=== PATIENT | female | born 2000 | race Two or more races ===

== ENCOUNTER → 2025-02-06 | Outpatient (CLI) | payer MEDICAID, SELFPAY | END | disposition home or self-care (01) | PROVIDERS: PCP Family Medicine; Referring Provider Orthopaedic Surgery; Visit Provider Orthopaedic Surgery | DX: Z53.8 Procedure and treatment not carried out for other reasons (principal) ==

== ENCOUNTER → 2025-02-10 | Outpatient (CLI) | payer MEDICAID, SELFPAY ==
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
== END | disposition home or self-care (01) ==
PROVIDERS: PCP Family Medicine; Referring Provider Orthopaedic Surgery; Visit Provider Orthopaedic Surgery
DX: M25.851 Other specified joint disorders, right hip (principal); Z87.81 Personal history of (healed) traumatic fracture
CPT/HCPCS: 72170

== ENCOUNTER → 2025-02-12 | Outpatient (CLI) | payer MEDICAID, SELFPAY ==
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
== END | disposition home or self-care (01) ==
LOC: CDIM 16:58
PROVIDERS: PCP Family Medicine; Referring Provider Podiatrist; Visit Provider Podiatrist
DX: S92.354D Nondisplaced fracture of fifth metatarsal bone, right foot, subsequent encounter for fracture with routine healing (principal); V99.XXXD Unspecified transport accident, subsequent encounter
CPT/HCPCS: 73630

== ENCOUNTER 2025-02-14 23:01 | Emergency (ER) | payer MEDICAID, SELFPAY ==
[2025-02-14 23:01] VITALS: BMI 40.2
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
[2025-02-14 23:18] VITALS: BP 139/89; PULSE 98; RESP 18; TEMP 36.8; O2SAT 98
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
[2025-02-15] MEDS: MORPHINE SULF INJ 10 MG/ML VIAL IM (01:58)
[2025-02-15 02:08] VITALS: BP 125/68; PULSE 87; RESP 19; TEMP 36.6; O2SAT 99
== END 2025-02-15 02:11 | disposition home or self-care (01) ==
PROVIDERS: Emergency Provider Emergency Medicine; PCP Family Medicine
DX: S32.501A Unspecified fracture of right pubis, initial encounter for closed fracture (principal); S32.491A Other specified fracture of right acetabulum, initial encounter for closed fracture; S32.601A Unspecified fracture of right ischium, initial encounter for closed fracture; X58.XXXA Exposure to other specified factors, initial encounter
CPT/HCPCS: 72192; 96372; 99284; J2270

== ENCOUNTER 2025-02-19 22:15 | Emergency (ER) | payer MEDICAID, SELFPAY ==
[2025-02-19 22:16] VITALS: BMI 40.2
[2025-02-19 22:52] VITALS: BP 141/91; PULSE 87; RESP 18; TEMP 36.8; O2SAT 99
--- NOTE | 2025-02-20 | XR_ITS ---
Examination: Duplex scan of the lower extremity, unilateral left complete Date and time of exam: February 12, 2025 0221 hours INDICATIONS: Left leg swelling and pain beginning 2 weeks ago Technique: Duplex scan of the extremity veins using B-mode/grayscale imaging and Doppler spectral analysis and color flow Attention is directed to internal echogenicity, compression and augmentation involving these veins, color flow assessment, spectral analysis Findings: Major deep venous structures in the extremity demonstrate normal course and caliber. There is no evidence of deep vein thrombosis. Normal color flow and spectral analysis Impression: Negative for DVT..
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
--- NOTE | 2025-02-20 04:15 | PRELIM_ITS ---
Left lower extremity venous Doppler ultrasound with wave Doppler spectral analysis. February 20, 2025 at 0221 hours Clinical history: Rule out DVT. Technique: Duplex scan of the left lower extremity deep venous systems was performed utilizing 2D grayscale imaging, Doppler spectral analysis and color flow Doppler and with compression. Comparison: No prior study is available for comparison. Findings: Doshi scale, color flow and spectral Doppler evaluation of the left lower extremity deep veins was performed. The common femoral, superficial femoral and popliteal veins are patent and compressible. Normal respiratory variation is noted. There is no evidence of occlusive or nonocclusive thrombus. The great saphenous vein is patent and compressible at the level of the saphenofemoral junction. Impression: No sonographic evidence of deep venous thrombosis in the left lower extremity. Report Electronically Signed By: Rancho Saleem 02/20/2025 4:14:59 AM [EST]
== END 2025-02-20 05:03 | disposition home or self-care (01) ==
PROVIDERS: Emergency Provider Emergency Medicine; PCP Family Medicine
DX: M79.89 Other specified soft tissue disorders (principal)
CPT/HCPCS: 93971; 99284

== ENCOUNTER 2025-03-25 10:30 | Outpatient (RCR) | payer MEDICAID, SELFPAY ==
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
== END 2025-03-25 23:59 | disposition home or self-care (01) ==
LOC: CPTX 10:30
PROVIDERS: PCP Family Medicine; Referring Provider Family Medicine; Visit Provider Family Medicine
DX: R26.2 Difficulty in walking, not elsewhere classified (principal); R26.89 Other abnormalities of gait and mobility; S82.54 Nondisplaced fracture of medial malleolus of right tibia; S72.91XD Unspecified fracture of right femur, subsequent encounter for closed fracture with routine healing; V89.2XXD Person injured in unspecified motor-vehicle accident, traffic, subsequent encounter
CPT/HCPCS: 97110; 97162

== ENCOUNTER → 2025-04-06 | Outpatient (CLI) | payer MEDICAID, SELFPAY ==
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
== END | disposition home or self-care (01) ==
PROVIDERS: Referring Provider Orthopaedic Surgery; Visit Provider Orthopaedic Surgery
DX: S82.131 Displaced fracture of medial condyle of right tibia (principal); V99.XXXA Unspecified transport accident, initial encounter; Z87.81 Personal history of (healed) traumatic fracture
CPT/HCPCS: 72170; 73562

== ENCOUNTER → 2025-04-14 | Outpatient (CLI) | payer MEDICAID, SELFPAY ==
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
== END | disposition home or self-care (01) ==
PROVIDERS: PCP Family Medicine; Referring Provider Orthopaedic Surgery; Visit Provider Orthopaedic Surgery
DX: Z87.81 Personal history of (healed) traumatic fracture (principal)
CPT/HCPCS: 72170

== ENCOUNTER 2025-04-23 13:00 | Outpatient (RCR) | payer MEDICAID, SELFPAY ==
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
== END 2025-04-25 23:59 | disposition home or self-care (01) ==
LOC: CPTX 13:00
PROVIDERS: PCP Family Medicine; Referring Provider Family Medicine; Visit Provider Family Medicine
DX: R26.2 Difficulty in walking, not elsewhere classified (principal); R26.89 Other abnormalities of gait and mobility; S82.54 Nondisplaced fracture of medial malleolus of right tibia; S72.91XD Unspecified fracture of right femur, subsequent encounter for closed fracture with routine healing; V89.2XXD Person injured in unspecified motor-vehicle accident, traffic, subsequent encounter
CPT/HCPCS: 97110

== ENCOUNTER 2025-05-11 10:25 | Outpatient (RCR) | payer MEDICAID, SELFPAY ==
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
== END 2025-05-25 23:59 | disposition home or self-care (01) ==
LOC: CPTX 10:25
PROVIDERS: PCP Family Medicine; Referring Provider Family Medicine; Visit Provider Family Medicine
DX: R26.2 Difficulty in walking, not elsewhere classified (principal); R26.89 Other abnormalities of gait and mobility; S82.54 Nondisplaced fracture of medial malleolus of right tibia; S72.91XD Unspecified fracture of right femur, subsequent encounter for closed fracture with routine healing; V89.2XXD Person injured in unspecified motor-vehicle accident, traffic, subsequent encounter
CPT/HCPCS: 97110

== ENCOUNTER 2025-07-22 11:30 | Outpatient (RCR) | payer MEDICAID, SELFPAY ==
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
== END 2025-07-26 23:59 | disposition home or self-care (01) ==
LOC: CPTX 11:30
PROVIDERS: PCP Family Medicine; Referring Provider Family Medicine; Visit Provider Family Medicine
DX: R26.2 Difficulty in walking, not elsewhere classified (principal); R26.89 Other abnormalities of gait and mobility; R53.1 Weakness; M25.551 Pain in right hip; S82.54 Nondisplaced fracture of medial malleolus of right tibia; S72.91XD Unspecified fracture of right femur, subsequent encounter for closed fracture with routine healing; T07.XXXD Unspecified multiple injuries, subsequent encounter; V89.2XXD Person injured in unspecified motor-vehicle accident, traffic, subsequent encounter
CPT/HCPCS: 97110

== ENCOUNTER 2025-08-06 11:25 | Outpatient (RCR) | payer MEDICAID, SELFPAY ==
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
== END 2025-08-25 23:59 | disposition home or self-care (01) ==
LOC: CPTX 11:25
PROVIDERS: PCP Family Medicine; Referring Provider Family Medicine; Visit Provider Family Medicine
DX: R26.2 Difficulty in walking, not elsewhere classified (principal); R26.89 Other abnormalities of gait and mobility; S82.54XD Nondisplaced fracture of medial malleolus of right tibia, subsequent encounter for closed fracture with routine healing; S72.91XD Unspecified fracture of right femur, subsequent encounter for closed fracture with routine healing; V89.2XXD Person injured in unspecified motor-vehicle accident, traffic, subsequent encounter
CPT/HCPCS: 97110

== ENCOUNTER 2025-08-29 19:57 | Emergency (ER) | payer MEDICAID, SELFPAY ==
[2025-08-29 19:59] VITALS: BMI 42.0
[2025-08-29 20:24] VITALS: BP 132/88; PULSE 75; RESP 18; TEMP 36.9; O2SAT 99
--- NOTE | 2025-08-29 20:35 | EDNOTE_ITS ---
ED Dizzyness RME/HPI General Chief Complaint: Dizziness Stated Complaint: DIZZINESS Time Seen by Provider: 08/29/25 20:03 Arrival date/time: 08/29/25 19:57 RME / HPI RME / HPI Narrative: 24-year-old female patient came in for evaluation regarding dizziness. Patient has been having dizziness on and off for the last few days, worse with sudden positional change. Denies any trauma denies any fall denies any fever denies any focal neurologic deficit. Patient is ambulatory. On my initial evaluation patient told me that her dizziness is completely gone. Related Data Previous Rx's ?Medication ?Instructions ?Recorded acetaminophen 500 mg tablet 1,000 mg (2 x 500 mg) PO Q 6H PRN 01/25/19 fever #30 tabs clindamycin HCl 300 mg capsule 300 mg PO QID #40 caps 01/25/19 oxycodone-acetaminophen 5 mg-325 2 tab PO Q8H PRN pain #20 tabs 02/15/25 mg tablet (Percocet) meclizine 50 mg tablet 50 mg PO BID PRN dizziness o r 08/29/25 vertigo #30 tabs Allergies Allergy/AdvReac Type Severity Reaction Status Date / Time Sulfa (Sulfonamide Allergy Verified 01/25/19 00:05 Antibiotics) Review of Systems Review of Systems Narrative Review of Systems: Review of system reviewed and within normal limits except mentioned in HPI ED Exam Narrative Physical exam: VITAL SIGNS: Reviewed. GENERAL APPEARANCE: Alert and interactive, follows commands, no acute distress, HEAD AND FACE: Non-traumatic. ENT: PERRL, pink conjunctivitis, eyelid no trauma, Mucous membrane moist. Bilateral tympanic membrane no erythema no bulging NECK: Supple, nontender, no nuchal rigidity. CHEST: No tenderness, no crepitus, no paradoxical movement, no retractions. LUNGS: Clear, well ventilated, symmetric, no rales, no wheezing, no ronchi, no stridor, good breath sounds bilaterally. HEART: Regular rate, regular rhythm, no murmur, no gallops. ABDOMEN: Soft, positive bowel sounds, nondistended, no guarding, nontender, no rebound, no masses, RECTAL: Deferred. GENITAL: Deferred. NEUROLOGICAL: Gross motor function intact sensory function intact, Appropriate for age. MUSCULOSKELETAL: low back nontender, full range of motion. EXTREMITIES: Nontender, full range of motion. SKIN: Color pink, dry, no rash, no lacerations, no abrasions, no contusions. LYMPHATICS: Deferred. Course Quality Measures none Orders Category Date Time Status Meclizine HCl [Antivert] Med 08/29/25 20:34 Once 50 mg PO X1 ONE Vital Signs Vital signs: Vital Signs Temperature 98.5 F 08/29/25 20:24 Pulse Rate 75 08/29/25 20:24 Respiratory Rate 18 08/29/25 20:24 Blood Pressure 132/88 H 08/29/25 20:24 Pulse Oximetry (%) 99 08/29/25 20:24 Oxygen Delivery Method Room Air 08/29/25 20:24 Dizziness MDM Narrative MDM Narrative:: 24-year-old female patient came in for evaluation regarding dizziness. Patient has been having dizziness on and off for the last few days, worse with sudden positional change. Denies any trauma denies any fall denies any fever denies any focal neurologic deficit. Patient is ambulatory. On my initial evaluation patient told me that her dizziness is completely gone. Imaging workup is not needed at this time, currently patient is not having any sign of dizziness, no headache no focal neurologic deficit. Patient will be sent home on meclizine Patient data External records reviewed:: None Clinical information provided by:: patient Social determinants that could affect healthcare access:: none Patient has the following chronic illnesses:: None How is presenting disease/condition affected by chronic disease/condition?: no chronic disease Evaluation data The following diagnostics were reviewed and interpreted by me:: other (specify) (None) Lab and/or radiology exams considered but not ordered:: None Interpretation Summary: None Medications / Prescriptions Medications or Prescriptions considered but not ordered:: None Medication administrations:: Medication Administration History Meclizine HCl (Meclizine Hcl 25 Mg Tablet) 50 mg PO X1 ONE Stop: 08/29/25 20:35 Meclizine Consultations Consultation(s) initiated? (list below): No Diagnosis Dizziness Differential Diagnosis: benign paroxysmal positional vertigo and other (Dizziness, vertigo) Most likely diagnosis given after review of the tests above:: Dizziness Admission Indicated Admission indicated?: not indicated Explain why admission is indicated or not indicated:: Stable Admission Request Was there a request for admission?: No Disposition Plan Disposition Plan: Discharge Discharge Attestation Discharge Attestation: The patient was given an opportunity to ask questions and understood the discharge instructions. Discharge instructions specifically effects, indications for sooner follow up or return to the emergency department, and the expected course of current diagnosis. Patient condition: Stable Discharge Plan Plan Patient Disposition: HOME (Self Care) Discharge Disposition comment: Stable Prescriptions/Referrals Prescriptions/Med Rec: New meclizine 50 mg tablet 50 mg PO BID PRN (Reason: dizziness or vertigo) Qty: 30 0RF No Action clindamycin HCl 300 mg capsule 300 mg PO QID Qty: 40 0RF acetaminophen 500 mg tablet 1,000 mg PO Q6H PRN (Reason: fever) Qty: 30 0RF oxycodone-acetaminophen [Percocet] 5-325 mg tablet 2 tab PO Q8H MDD 6 PRN (Reason: pain) Qty: 20 0RF Problem List Clinical Impression: Dizziness Patient/Caregiver Discharge Instructions Discharge Activity: activity as tolerated Education Materials: Vertigo Medicine Tx Additional Instructions: Thank you for the opportunity for serving you today. You are stable for discharged . You are advised to: Follow-up with your PCP in 1 to 2 days Return to ED for worsening of symptoms Increase oral fluids Take medication as prescribed Print Language: Trinidadian Stand Alone Forms: [place] Award Info., Patient Portal Info Letter PA/TOM Supervising Physician LILIA/TOM Supervising Physician: Rosa Barahona MD
[2025-08-29] MEDS: MECLIZINE HCL 25 MG TABLET 50 MG PO (20:43)
[2025-08-29 20:51] VITALS: RESP 16
== END 2025-08-29 20:51 | disposition home or self-care (01) ==
LOC: SERX 20:57
PROVIDERS: Emergency Provider Emergency Medicine; PCP Family Medicine
DX: R42 Dizziness and giddiness (principal)
CPT/HCPCS: 99283; A9270

== ENCOUNTER → 2025-09-15 | Outpatient (CLI) | payer MEDICAID, SELFPAY ==
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
== END | disposition home or self-care (01) ==
PROVIDERS: PCP Family Medicine; Referring Provider Orthopaedic Surgery; Visit Provider Orthopaedic Surgery
DX: Z87.81 Personal history of (healed) traumatic fracture (principal)
CPT/HCPCS: 72170